=== PATIENT | female | born 1985 | race Caucasian/White ===

== ENCOUNTER → 2017-01-01 | Outpatient (CLI) | payer BC | LOC: MHCPAIN 08:14 | DX: G89.29 Other chronic pain (principal); Q06.4 Hydromyelia; M79.2 Neuralgia and neuritis, unspecified | CPT/HCPCS: G0463 ==

== ENCOUNTER → 2017-04-23 | Outpatient (CLI) | payer OTHER | LOC: COL.RAD 07:26 | DX: M89.312 Hypertrophy of bone, left shoulder (principal) ==

== ENCOUNTER → 2017-06-04 | Outpatient (CLI) | payer OTHER | LOC: COL.VAS 07:47 | DX: R20.0 Anesthesia of skin (principal) ==

== ENCOUNTER 2019-01-17 10:11 | Outpatient (CLI) | payer BC ==
[~2019-01-17] VITALS: Ht 172.7 cm; Wt 67.3 kg
[2019-01-17] VITALS (8 sets, daily range): BP systolic 147–171; BP diastolic 103–117; PULSE 75–112; TEMP 97.9
--- NOTE | 2019-01-17 10:20 | NUR ---
Pt arrives on unit via wheelchair with spouse. States increase of headache since last night that worsens with activity. Occasional floating vision. 1+ edema noted in bilateral ankles. Per pt, "I don't feel right and I feel weak." Denies RUQ pain, vaginal bleeding, LOF and regular ctx. Reports GFM. Motrin 600mg was taken at 0700 this morning. Procardia 60mg XL taken last night. Orders recieved by Dr. Ernst. CBC/CMP with betamethasone 12mg IM. Pt changed into clean gown. EFM and toco applied. VSS taken. Admission assessment completed. Betamethasone given in left gluteus. Pt tolerated well. See EMAR.Pt oriented to room. Updated on POC. No questions or concerns at this time. Provider to be notified with lab results.
[2019-01-17] MEDS ORDERED: PRENATAL MVI (10:32)
[2019-01-17] MEDS ORDERED: UNISOM25 MG PO (10:32)
[2019-01-17] MEDS ORDERED: PROCARDIA XL 6060 MG PO (10:33)
[2019-01-17 10:52] LABS: BASO # 0.1 (0.0-0.2); BASO % 0.6 % (0.0-2.0); EOS # 0.1 (0.0-0.7); EOS % 0.5 % (0-4.0); GRAN # 9.1 (1.4-6.5); GRAN % 69.5 % (42.2-75.2); HEMATOCRIT 49.9 % (37.0-47.0); HEMOGLOBIN 17.6 g/dl (12.5-16.0); LYMPH # 2.9 (1.2-3.4); LYMPH % 22.4 % (20.0-51.0); MEAN CELL VOLUME 86 fl (80.0-100.0); MEAN CORPUSCULAR HEMOGLOBIN 30 pg (27.0-31.0); MEAN CORPUSCULAR HGB CONC 35 g/dl (33.0-37.0); MEAN PLATELET VOLUME 10.1 fl (7.4-10.4); MONO # 0.9 (0.1-0.6); MONO % 6.7 % (1.7-9.3); PLATELET COUNT 381 K/mm3 (130-400); RED BLOOD COUNT 5.79 M/mm3 (4.10-5.30); REDCELL DISTRIBUTION WIDTH-CV 12.7 % (11.5-14.5)
[2019-01-17 11:03] LABS: ALBUMIN 2.9 gm/dL (3.5-5.0); BILIRUBIN,TOTAL 0.3 mg/dL (0.0-1.0); CALCIUM 8.9 mg/dL (8.4-10.2); CREATININE, serum 1.6 (0.52-1.25); POTASSIUM 5.2 mmol/L (3.4-5.0); TOTAL PROTEIN 6.5 gm/dL (6.4-8.2)
--- NOTE | 2019-01-17 13:00 | NUR ---
Discharge instructions given. No questions or concerns at this time. Leaves unit via wheelchair with unit tech.
== END 2019-01-17 13:00 | disposition home or self-care (01) ==
LOC: LDRO 10:11 → LDR 10:13 → LDRO 13:00
PROVIDERS: Obstetrics & Gynecology
DX: O99.89 Other specified diseases and conditions complicating pregnancy, childbirth and the puerperium (principal); R53.1 Weakness; R51 Headache; Z3A.28 28 weeks gestation of pregnancy
CPT/HCPCS: OP; J0702

== ENCOUNTER 2019-01-18 11:32 | Outpatient (CLI) | payer BC ==
[~2019-01-18] VITALS: Ht 172.7 cm; Wt 69.1 kg
[2019-01-18 11:10] VITALS: BP 150/99; PULSE 92; TEMP 98.1
[~2019-01-18 11:32] MED LIST: PRENATAL MVI; PROCARDIA XL 6060 MG PO; UNISOM25 MG PO
[2019-01-18 11:56] VITALS: BP 173/99; PULSE 81; TEMP 98.2
--- NOTE | 2019-01-18 12:00 | NUR ---
[address] GALLARDO OFFICE WITH ELEVATED BLOOD PRESSURE IN OFFICE. ASSESSMENT COMPLETED. EFM ON FHT 135 BABY VERY ACTIVE. BP 159/105 IV STARTED IN LEFT WRIST, BLOO9D DRAWN AT THIS TIME. 1145 MAG 4 GRAM BOLUS STARTED AT THIS TIME PER DR GALLARDO ORDER. PATIENT TOLERATES WELL GIORDANO PLACED AT THIS TIME. DR GALLARDO AT BEDSIDE. PATIENT SIGNED CONSENT TO TRANSFER TO [facility] AT THI S TIME.
[2019-01-18 12:07] VITALS: BP 150/99; PULSE 92; TEMP 98.1
[2019-01-18 12:08] LABS: BASO % 0.1 % (0.0-2.0); GRAN # 17.1 (1.4-6.5); GRAN % 80.9 % (42.2-75.2); HEMATOCRIT 46.8 % (37.0-47.0); HEMOGLOBIN 16.5 g/dl (12.5-16.0); LYMPH # 2.6 (1.2-3.4); LYMPH % 12.4 % (20.0-51.0); MEAN CELL VOLUME 87 fl (80.0-100.0); MEAN CORPUSCULAR HEMOGLOBIN 31 pg (27.0-31.0); MEAN CORPUSCULAR HGB CONC 35 g/dl (33.0-37.0); MEAN PLATELET VOLUME 10.3 fl (7.4-10.4); MONO # 1.3 (0.1-0.6); MONO % 6.2 % (1.7-9.3); PLATELET COUNT 412 K/mm3 (130-400); RED BLOOD COUNT 5.36 M/mm3 (4.10-5.30); REDCELL DISTRIBUTION WIDTH-CV 12.7 % (11.5-14.5)
[2019-01-18 12:10] VITALS: BP 153/101; PULSE 89
[2019-01-18 12:19] LABS: BILIRUBIN,TOTAL 0.3 mg/dL (0.0-1.0); CALCIUM 8.8 mg/dL (8.4-10.2); CREATININE, serum 1.38 (0.52-1.25); POTASSIUM 5.2 mmol/L (3.4-5.0); TOTAL PROTEIN 6.4 gm/dL (6.4-8.2)
[2019-01-18 12:30] VITALS: BP 156/98; PULSE 78
--- NOTE | 2019-01-18 12:53 | NUR ---
EMS HER FOR TRANSFER TO [facility] VIA AMBULANCE AT THIS TIME. REPORT GIVEN TO NATHAN COFFEE SUPERVISOR. EFM OFF PER DR GALLARDO ORDER. DISMISS TO EMS AT THIS TIME. 1250 [facility] CALLED AND REPORT GIVEN TO RACHEL GONSALEZ CHARGE NURSE.
== END 2019-01-18 12:30 | disposition short-term general hospital (02) ==
LOC: LDRO 11:32 → LDR 11:33 → LDRO 12:30
PROVIDERS: Obstetrics & Gynecology
DX: O13.3 Gestational [pregnancy-induced] hypertension without significant proteinuria, third trimester (principal); Z3A.28 28 weeks gestation of pregnancy
CPT/HCPCS: OP; J3475; J7120